=== PATIENT | female | born 1995 | race Caucasian/White ===

== ENCOUNTER 2018-03-19 22:50 | Emergency (ER) | payer MEDICAID, OTHER ==
[~2018-03-19] VITALS: Ht 157.5 cm; Wt 54.5 kg
[2018-03-19 22:54] VITALS: BP 129/78
[2018-03-19 23:48] LABS: BASOPHILS # (AUTO) 0.05 x10^3/uL (0-0.1); BASOPHILS % (AUTO) 1 % (0-1); EOSINOPHILS # (AUTO) 0.06 x10^3/uL (0-0.4); EOSINOPHILS % (AUTO) 1 % (1-7); LYMPHOCYTES # (AUTO) 1.97 x10^3/uL (1-3.4); LYMPHOCYTES % (AUTO) 33 % (22-44); MD NO; MEAN CORPUSCULAR HEMOGLOBIN 31.4 pg (27.0-34.8); MEAN CORPUSCULAR HGB CONC 33.7 g/dL (32.4-35.8); MEAN CORPUSCULAR VOLUME 93.3 fL (80-100); MEAN PLATELET VOLUME 7.1 fL (7.4-10.4); MONOCYTES # (AUTO) 0.37 x10^3/uL (0.2-0.8); MONOCYTES % (AUTO) 6 % (2-9); NEUTROPHILS # (AUTO) 3.46 x10^3/uL (1.8-6.8); NEUTROPHILS % (AUTO) 59 % (42-75); PLATELET COUNT 314 x10^3/uL (130-400); RED BLOOD COUNT 4.22 x10^6/uL (3.82-5.3); RED CELL DISTRIBUTION WIDTH 12.3 % (9.6-15.2)
[2018-03-20] LABS: ALANINE AMINOTRANSFERASE 38 U/L (12-78); ALBUMIN 3.9 g/dL (3.4-5.0); ANION GAP 7 mmol/L (5-15); CALCIUM 9.4 mg/dL (8.5-10.1); CHLORIDE 106 mmol/L (98-107); CREATININE 0.92 mg/dL (0.55-1.02)
[2018-03-20 00:02] LABS: ALKALINE PHOSPHATASE 83 U/L (45-117); BILIRUBIN,TOTAL 0.2 mg/dL (0.2-1.0)
[2018-03-20 00:18] LABS: HCG UR SG 1.011 (1.003-1.030); MICROSCOPIC AUTO
[2018-03-20 00:19] LABS: CULTURE INDICATED? YES
[2018-03-20 00:59] LABS: CLUE CELLS NONE SEEN (NONE SEEN)
[2018-03-20 01:00] LABS: WET PREP WBCS FEW (FEW)
== END 2018-03-20 01:50 | disposition home or self-care (01) ==
LOC: ED 23:10
DX: N30.90 Cystitis, unspecified without hematuria (principal); N83.291 Other ovarian cyst, right side; N76.0 Acute vaginitis
CPT/HCPCS: 36415; 80053; 81001; 81025; 83690; 85025; 87086; 87210; 87491; 87591; 87808; 99284

== ENCOUNTER 2018-04-11 09:17 | Emergency (ER) | payer MEDICAID ==
[~2018-04-11] VITALS: Ht 157.5 cm; Wt 54.7 kg
[2018-04-11 09:20] VITALS: BP 111/70
[2018-04-11 10:14] LABS: MICROSCOPIC INDICATED
[2018-04-11 10:25] LABS: CULTURE INDICATED? YES
[2018-04-11 10:47] LABS: BASOPHILS # (AUTO) 0.02 x10^3/uL (0-0.1); BASOPHILS % (AUTO) 0 % (0-1); EOSINOPHILS # (AUTO) 0.07 x10^3/uL (0-0.4); EOSINOPHILS % (AUTO) 1 % (1-7); LYMPHOCYTES # (AUTO) 2.13 x10^3/uL (1-3.4); LYMPHOCYTES % (AUTO) 37 % (22-44); MD NO; MEAN CORPUSCULAR HEMOGLOBIN 32.3 pg (27.0-34.8); MEAN CORPUSCULAR HGB CONC 34.2 g/dL (32.4-35.8); MEAN CORPUSCULAR VOLUME 94.5 fL (80-100); MEAN PLATELET VOLUME 7.7 fL (7.4-10.4); MONOCYTES # (AUTO) 0.39 x10^3/uL (0.2-0.8); MONOCYTES % (AUTO) 7 % (2-9); NEUTROPHILS # (AUTO) 3.15 x10^3/uL (1.8-6.8); NEUTROPHILS % (AUTO) 55 % (42-75); PLATELET COUNT 218 x10^3/uL (130-400); RED CELL DISTRIBUTION WIDTH 12.7 % (9.6-15.2)
[2018-04-11 11:01] LABS: ANION GAP 6 mmol/L (5-15); CALCIUM 8.9 mg/dL (8.5-10.1); CHLORIDE 108 mmol/L (98-107); CREATININE 0.63 mg/dL (0.55-1.02)
== END 2018-04-11 11:35 | disposition home or self-care (01) ==
LOC: ED 11:30
DX: A56.09 Other chlamydial infection of lower genitourinary tract (principal); R10.2 Pelvic and perineal pain; F17.200 Nicotine dependence, unspecified, uncomplicated; Z88.8 Allergy status to other drugs, medicaments and biological substances
CPT/HCPCS: 36415; 76830; 80048; 81001; 82040; 84703; 85025; 87086; 99285

== ENCOUNTER 2019-04-21 13:03 | Emergency (ER) | payer MEDICAID ==
[~2019-04-21] VITALS: Ht 157.5 cm; Wt 57.5 kg
[2019-04-21 13:10] VITALS: BP 111/62
[2019-04-21 13:36] LABS: HCG UR SG 1.027 (1.003-1.030)
[2019-04-21 13:47] LABS: MICROSCOPIC INDICATED
[2019-04-21 13:50] LABS: CULTURE INDICATED? YES
--- NOTE | 2019-04-21 13:57 | NUR ---
PT HAS CO OF DYSURIA AND FREQUENCY. PT STATES SHE WAS AT [facility] AND RECIEVED ABX W OUT SYMPTOMS OF RELIEF FROM MEDS. PTS URINE IS BLOOD TINGED. UA OBTAINED.PT IS RESTING ON GURNEY W OUT DISTRESS.
--- NOTE | 2019-04-21 14:26 | NUR ---
DPatient/Caregiver given discharge instructions and they have confirmed that they understand the instructions. Patient ambulatory with steady gait.
[2019-05-03] MEDS ORDERED: BCP (20:07)
[2019-05-03] MEDS ORDERED: bcp (20:29)
== END 2019-04-21 14:34 | disposition home or self-care (01) ==
LOC: ED 13:38
DX: N30.00 Acute cystitis without hematuria (principal); F17.210 Nicotine dependence, cigarettes, uncomplicated
CPT/HCPCS: 81001; 81025; 87086; 99283

== ENCOUNTER 2019-05-03 19:33 | Emergency (ER) | payer MEDICAID ==
[~2019-05-03] VITALS: Ht 157.5 cm; Wt 57.2 kg
[2019-05-03 20:53] VITALS: BP 99/46
== END 2019-05-03 22:02 | disposition home or self-care (01) ==
LOC: ED 21:56
DX: R30.0 Dysuria (principal); R10.84 Generalized abdominal pain
CPT/HCPCS: 36415; 80053; 81001; 81025; 85025; 99283